=== PATIENT | male | born 1940 | race Two or more races ===

== ENCOUNTER 2019-11-18 05:17 | Day surgery (SDC) | payer MEDICARE ==
[~2019-11-18] VITALS: Ht 170.2 cm; Wt 69.9 kg
[2019-11-18] VITALS (12 sets, daily range): BP systolic 122–177; BP diastolic 71–87
[~2019-11-18 05:17] MED LIST: ASPIRIN81 MG ORAL; JANUVIA25 MG ORAL; LANTUS SOL100 UNIT/1 SUBQ; NOVOLOG100 UNIT/4 SQ; SIMVASTATIN40 MG ORAL; ZETIA10 MG ORAL
[2019-11-18] MEDS ORDERED: fentaNYL 100 mcg/2 mL IV ONE (07:12)
[2019-11-18] MEDS ORDERED: Midazolam 2mg/2ml Inj ONE (07:12)
[2019-11-18] MEDS ORDERED: Bupivacaine 0.5% Inj 30 ml vial INJ ONE (07:13)
[2019-11-18] MEDS ORDERED: Lidocaine 1% Plain 30 ml INJ ONE (07:13)
[2019-11-18] MEDS ORDERED: fentaNYL 100 mcg/2 mL IV PRN (07:30)
[2019-11-18] MEDS ORDERED: NS Irrig 1000ml ONE (07:30)
[2019-11-18] MEDS ORDERED: Sterile Water Irrig 1000ml IRRIG ONE (07:30)
[2019-11-18] MEDS ORDERED: LR 1000ml ONE (07:30)
--- NOTE | 2019-11-18 07:38 | Pre-Procedure Note/Attestation ---
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 I attest that, if there was a reasonable possibility of needing a blood transfusion, the patient (or the patient's legal technical sales representative) was given the [facility] standardized written summary, pursuant to the Ramu Sheri Blood Safety Act ([place] Health and Safety Code # 1645, as amended). I attest that I re-evaluated the patient just prior to the surgery and that there has been no change in the patient's H&P, except as documented below: David Gomez DPM Nov 18, 2019 07:38
[2019-11-18] MEDS ORDERED: Lidocaine 1% MPF 10mg/ml 5ml ONE (07:59)
--- NOTE | 2019-11-18 08:38 | Brief Operative Note ---
Immediate Post Operative Note Operative Note Pre-op Diagnosis: Osteonecrosis third left metatarsal head Procedure: Third metatarsal head resection left foot Tenotomy and capsulotomy third left MPJ Post-op Diagnosis: same as pre-op Surgeon: Jason Anesthesiologist: Derrell Anesthesia: MAC Specimen: yes Complications: none Condition: stable Fluids: 500 Estimated Blood Loss: none Drains: none Implant(s) used?: No David Gomez DPM Nov 18, 2019 08:38
--- NOTE | 2019-11-18 08:42 | Immediate Post-Op Evaluation ---
Immediate Post-Op Evalulation Immediate Post-Op Evalulation Procedure: left 3rd metatarsal head resection Date of Evaluation: Nov 18, 2019 Time of Evaluation: 08:40 IV Fluids: 500 Blood Pressure Systolic: 124 Blood Pressure Diastolic: 60 Pulse Rate: 75 Respiratory Rate: 14 O2 Sat by Pulse Oximetry: 97 Temperature (Fahrenheit): 98.3 Nausea: No Vomiting: No Complications none Patient Status: awake, reacts, patent Hydration Status: adequate Drug: ancef Given Within 1 Hr of Incision: Yes Time Given: 07:35 Mallorie Guadalupe CRNA Nov 18, 2019 08:42
--- NOTE | 2019-11-18 08:44 | Anethesia Preoperative Eval ---
Anesthesia Pre-op PMH/ROS General Date of Evaluation: Nov 18, 2019 Time of Evaluation: 07:30 Anesthesiologist: eunice ASA Score: ASA 3 Mallampati Score Class I : Soft palate, uvula, fauces, pillars visible Class II: Soft palate, uvula, fauces visible Class III: Soft palate, base of uvula visible Class IV: Only hard plate visible Mallampati Classification: Class II Surgeon: Jason Diagnosis: Metatarsal Head infection Surgical Procedure: Resection of 3rd metatarsal head resection Family History: no anesthesia problems Allergies: Coded Allergies: ISONIAZID (Verified Allergy, Severe, Rash, 11/18/19) Medications: see eMAR Patient NPO?: Yes NPO Date: Nov 18, 2019 NPO Time: 00:01 Past Medical History Cardiovascular: Reports: HTN Pulmonary: Denies: asthma, COPD, ALIS, other Gastrointestinal/Genitourinary: Denies: GERD, CRI, ESRD, other Neurologic/Psychiatric: Denies: dementia, CVA, depression/anxiety, TIA, other Endocrine: Reports: DM HEENT: Denies: cataract (L), cataract (R), glaucoma, NOATAK (L), NOATAK (R), other Hematology/Immune: Denies: anemia, DVT, bleeding disorder, other PSxH Narrative: unknown Anesthesia Pre-op Phys. Exam Physician Exam Last Vital Signs Date Time Temp Pulse Resp B/P (MAP) Pulse Ox O2 Delivery O2 Flow Rate FiO2 11/18/19 05:40 97.3 87 18 177/83 98 Room Air Constitutional: NAD Neurologic: CN 2-12 intact Cardiovascular: RRR Respiratory: CTA Gastrointestinal: S/NT/ND Airway Exam Mallampati Classification 2 Mallampati Score: Class II MO: full ROM: full Anesthesia Pre-op A/P Labs Chemistry Test 11/18/19 05:53 POC Whole Blood Glucose Pending Studies Pre-op Studies: EKG - SR Risk Assessment & Plan Assessment: covid neg; denies cp/sob Plan: MAC Status Change Before Surgery: No Pre-Antibiotics Drug: ancef Given Within 1 Hr of Incision: Yes Time Given: 07:35 Mallorie Guadalupe CRNA Nov 18, 2019 08:44
--- NOTE | 2019-11-18 11:48 | Diagnostic Imaging Report ---
Indication: Foot pain, postoperative Technique: 3 views left foot Comparison: none Findings: Patient is status post osteotomy of the third metatarsal head. Lucency within the osteotomy site presumably reflects retained air from the surgical exposure. Amputation margin appears clean. There is hallux valgus and metatarsus adductus, as well as hammertoe deformity of all the digits. Impression: Postsurgical changes as described. No unusual features
--- NOTE | 2019-11-18 15:30 | Operative Note - Dictated ---
DATE OF OPERATION: 11/18/2019 SURGEON: David Gomez DPM. ANESTHESIOLOGIST: Mallorie Guadalupe CRNA. PREOPERATIVE DIAGNOSES: 1. Osteonecrosis third left metatarsal head. 2. Pes cavus. POSTOPERATIVE DIAGNOSES: 1. Osteonecrosis third left metatarsal head. 2. Pes cavus. 3. 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 PROCEDURES PERFORMED: 1. Third metatarsal head resection left foot. 2. Tenotomy and capsulotomy third left metatarsophalangeal joint. DESCRIPTION OF THE OPERATION: Patient was brought to the operating room and was placed on the operating room table in the supine position. IV sedation was administered by the anesthesiologist. Local anesthesia consisting of 50:50 mixture of 1% Xylocaine plain and 0.5% Marcaine plain total of 15 mL was administered to the left foot. An Esmarch bandage was applied to the left lower extremity. The foot was prepped and draped in the usual sterile manner. An Esmarch bandage was then utilized to exsanguinate the blood and the left ankle tourniquet was applied to 250 mmHg. Attention was directed to the left foot over the third metatarsophalangeal joint where an approximately 4 cm dorsal linear skin incision was centered over the joint. The incision was deepened utilizing sharp and blunt dissection with care being taken to cauterize and ligate all bleeders. At the level of the joint, a transverse tenotomy was performed. The extensor tendons was reflected and the capsule was then severed utilizing 15 blade. At this point, a Grapevine was utilized to free the soft tissue capsular and periosteum attachment to the third metatarsal head. A sagittal saw was then utilized to resect the head in total. At this point, the bone clamp was utilized to grasp the third metatarsal head and it was resected in total. The wound was copiously flushed utilizing sterile saline. At this point, the capsular tissue was reapproximated utilizing 3-0 Vicryl in a buried knot type stitch. The subcutaneous tissue was then reapproximated utilizing 4-0 Vicryl in a simple and horizontal type stitch. The skin was then reapproximated utilizing 5-0 nylon in a simple interrupted type stitch. The wound was dressed utilizing an Adaptic, 4 x 4 gauze, and 3-inch Estela. Left ankle tourniquet was deflated and vascular supply was noted to all digits. The patient tolerated the procedure well and left the operating room to recovery room with all vital signs stable. David Gomez D.P.M. DR: BRIANA JOB#: [id number] CC:
--- NOTE | 2019-11-18 17:30 | History and Physical Report ---
DATE OF ADMISSION: 11/18/2019 PODIATRIC HISTORY AND PHYSICAL HISTORY OF PRESENT ILLNESS: This is a 79-year-old white male that is being admitted today for an outpatient surgery of his left foot. The patient has been under my care for the past month for painful condition of his left foot. He has been prior treated by another bobtailer for an ulceration of the plantar aspect of the left foot. The ulcer healed with a callus and the patient stated that it was very painful to walk on it. The patient was consulted by me on surgical correction following MRI findings of osteonecrosis of his third left metatarsal head. PAST MEDICAL HISTORY: Remarkable for diabetes, hypercholesterolemia. MEDICATIONS: Insulin, Zocor, Januvia, Zetia, and aspirin. ALLERGIES: Isoniazid. PODIATRIC PHYSICAL EXAMINATION: VASCULAR STATUS: The pulses dorsalis pedis and posterior tibial arteries are equally palpable measuring 2/4 bilaterally. The capillary filling time is less than 4 seconds to all digits bilaterally. Homans sign is negative. Mild varicosities are noted bilateral lower extremities. NEUROLOGICAL: The reflexes, Achilles and patellar are intact bilaterally measuring 2/4. Sensation, proprioception, and vibration sensations are all intact bilateral lower extremities. Babinski is negative. Clonus is absent bilaterally. MUSCULOSKELETAL: Reveals bilateral pes cavus foot type. There is hammertoe deformities of all digits bilaterally with contracture of the metatarsophalangeal joints. Joint range of motion of the forefoot, mid foot, and rear foot are slightly decreased secondary to arthritic changes. No other structural deformities are present. There is painful palpation noticed over the plantar aspect of the third metatarsophalangeal joint. The head of the third metatarsal is palpable. Atrophy of the fat pad is noted bilaterally. DERMATOLOGICAL: Reveals hyperkeratotic lesions over the plantar aspect of the first metatarsal and third metatarsal on the left and second through fifth metatarsal on the right. All nails are present and dystrophic bilaterally. No scars or other lesions are noted otherwise. RADIOGRAPHIC: Reveals fractured third left metatarsal head on the left, which was diagnosed as osteonecrosis of the third metatarsal head on MRI exam. ASSESSMENT: 1. Pes cavus bilaterally. 2. Diabetes mellitus. 3. Osteonecrosis, third left metatarsal head. 4. 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 PLAN: Patient is admitted today for third metatarsal head resection, left foot. Risks, complications, and alternatives were discussed with the patient. Postoperative instructions were given. Postoperative medications were dispensed to patient. Patient elected to proceed with surgery. David Gomez D.P.M. DR: BRIANA JOB#: [id number] CC:
[2019-11-20 07:29] VITALS: BP 154/54
--- NOTE | 2019-11-20 07:29 | 48 Hour Post Anesthesia Eval ---
Post Anesthesia Evaluation Procedure: left 3rd metatarsal head resection Date of Evaluation: Nov 20, 2019 Time of Evaluation: 07:28 Blood Pressure Systolic: 154 0: 54 Pulse Rate: 55 Respiratory Rate: 14 O2 Sat by Pulse Oximetry: 98 Airway: patent Nausea: No Vomiting: No Hydration Status: adequate Cardiopulmonary Status: stable Mental Status/LOC: patient returned to baseline Post-Anesthesia Complications: none Follow-up care needed: N/A Mallorie Guadalupe CRNA Nov 20, 2019 07:29
== END 2019-11-18 11:00 | disposition home or self-care (01) ==
LOC: SUR 05:17
DX: M87.9 Osteonecrosis, unspecified (principal); Q66.72 Congenital pes cavus, left foot; M24.575 Contracture, left foot; E11.9 Type 2 diabetes mellitus without complications; E78.00 Pure hypercholesterolemia, unspecified; M20.42 Other hammer toe(s) (acquired), left foot; M20.41 Other hammer toe(s) (acquired), right foot; I10 Essential (primary) hypertension; Z79.82 Long term (current) use of aspirin; Z88.8 Allergy status to other drugs, medicaments and biological substances; Z79.899 Other long term (current) drug therapy; Z79.4 Long term (current) use of insulin
CPT/HCPCS: 28140; 28234; 73630; 82962; 94003; J0690; J1100; J2001; J2250; J2704; J3010; J3490; J7120; U0002; 94150